=== PATIENT | male | born 1950 ===

== ENCOUNTER → 2020-11-07 08:00 | Outpatient (ROUT) | payer MEDICARE, MEDICAID, SELFPAY ==
[2020-11-07 08:30] LABS: Add Manual Diff / Slide Review NO; Basophils Absolute Auto 0 /uL (0-100); Basophils Percent Auto 0.5 % (0-2); Eosinophils Absolute Auto 200 /uL (0-450); Eosinophils Percent Auto 4.6 % (2-4); Hematocrit 42.9 % (41-53); Hemoglobin 14.4 g/dL (13.5-17.5); Lymphocytes Absolute Auto 1400 /uL (1100-4500); Lymphocytes Percent Auto 31.2 % (25-40); Mean Corpuscular HGB Conc 33.7 % (30-36); Monocytes Absolute Auto 500 /uL (0-900); Monocytes Percent Auto 10.8 % (3-14); Neutrophils Absolute Auto 2400 /uL (1500-7000); Neutrophils Percent Auto 52.9 % (50-75); Platelet Count 169 X10^3/uL (150-400); Red Blood Cell Count 4.52 X10^6/uL (4.5-5.9); Red Cell Distribution Width 13.5 % (11.6-14.8); White Blood Cell Count 4.5 X10^3/uL (4.5-11.0)
[2020-11-07 08:59] LABS: Alanine Aminotransferase 28 IU/L (<50); Albumin 4.4 g/dL (3.5-5.0); Albumin Globulin Ratio 1.3 (1.0-2.8); Alkaline Phosphatase 30 U/L (38-126); Aspartate Aminotransferase 40 IU/L (17-59); BUN Creatinine Ratio 17.6 (6-22); Bilirubin Total 0.9 mg/dL (0.2-1.3); Blood Urea Nitrogen 16 mg/dL (9-20); Calcium 9.4 mg/dL (8.4-10.2); Carbon Dioxide 27 mmol/L (22-32); Chloride 103 mmol/L (98-107); Estimated Glomerular Filt Rate > 60.0 mL/min (>60); Globulin 3.3 g/dL (1.7-4.1); Glucose 73 mg/dL (80-110); HEMOLYSIS 37 (0-50); Potassium 4.2 mmol/L (3.4-5.1); Sodium 140 mmol/L (137-145); Total Protein 7.7 g/dL (6.3-8.2)
[2020-11-07 09:29] LABS: Thyroid Stimulating Hormone 3.79 uIU/mL (0.47-4.68)
[2020-11-07 09:48] LABS: Vitamin B12 446 pg/mL (239-931)
== END ==
PROVIDERS: Visit Provider Nurse Practitioner Family
DX: R41.0 Disorientation, unspecified (principal); R53.83 Other fatigue
CPT/HCPCS: 36415; 80053; 82607; 84443; 85025

== ENCOUNTER → 2021-06-27 17:10 | Outpatient (ROUT) | payer MEDICARE, MEDICAID, SELFPAY ==
[2021-06-30 09:22] LABS: COVID19 Sendout Not Detected (Not Detect)
== END ==
PROVIDERS: Visit Provider Internal Medicine
DX: Z20.822 Contact with and (suspected) exposure to COVID-19 (principal)
CPT/HCPCS: 87635

== ENCOUNTER 2021-07-07 09:11 | Emergency (ER) | payer MEDICARE, MEDICAID, SELFPAY ==
[2021-07-07] VITALS (7 sets, daily range): BP systolic 113–131; BP diastolic 67–88; PULSE 76–80; RESP 14; TEMP 36.4; O2SAT 94–98
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
--- NOTE | 2021-07-07 09:30 | DI.RAD.S_ITS ---
PROCEDURE: XR CHEST 1V INDICATIONS: +covid at outside facility. lethargic at facility. TECHNIQUE: One view of the chest was acquired. COMPARISON: [facility], CR, XR CHEST 1 VIEW, 06/25/2018, 16:02. FINDINGS: Surgical changes and devices: None. Lungs and pleura: Reduced lung volumes with prominence of the bronchovascular markings. Bibasilar streaky densities. No consolidation, pleural effusions or pneumothorax. Mediastinum: Mediastinal contours appear normal. Heart size is normal. Bones and chest wall: Multifocal degenerative change of the osseous structures. Overlying soft tissues appear unremarkable. IMPRESSION: Bibasilar atelectasis, superimposed infectious process cannot be excluded. Dictated by: Brian Dinh M.D. on 07/07/2021 at 9:58 Approved by: Brian Dinh M.D. on 07/07/2021 at 9:59
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
--- NOTE | 2021-07-07 10:09 | PC.NURSE ---
no symptoms reported by way of license inspector
--- NOTE | 2021-07-07 10:15 | PC.NURSE ---
patient speaks Mandarin
--- NOTE | 2021-07-07 10:52 | PC.NURSE ---
family friend in room: suzan parham
[2021-07-07 11:27] LABS: Add Manual Diff / Slide Review NO; Basophils Absolute Auto 0 /uL (0-100); Basophils Percent Auto 0.3 % (0-2); Eosinophils Absolute Auto 100 /uL (0-450); Eosinophils Percent Auto 1.3 % (2-4); Hematocrit 39.8 % (41-53); Hemoglobin 13.4 g/dL (13.5-17.5); Lymphocytes Absolute Auto 700 /uL (1100-4500); Lymphocytes Percent Auto 14.2 % (25-40); Mean Corpuscular HGB Conc 33.7 % (30-36); Mean Corpuscular Hemoglobin 31.1 PG (26-34); Mean Corpuscular Volume 92.2 fL (80-100); Monocytes Absolute Auto 400 /uL (0-900); Monocytes Percent Auto 8.6 % (3-14); Neutrophils Absolute Auto 3600 /uL (1500-7000); Neutrophils Percent Auto 75.6 % (50-75); Platelet Count 154 X10^3/uL (150-400); Red Blood Cell Count 4.32 X10^6/uL (4.5-5.9); Red Cell Distribution Width 13.9 % (11.6-14.8); White Blood Cell Count 4.8 X10^3/uL (4.5-11.0)
[2021-07-07 11:44] LABS: Alanine Aminotransferase 20 IU/L (<50); Albumin 4.1 g/dL (3.5-5.0); Albumin Globulin Ratio 1.3 (1.0-2.8); Alkaline Phosphatase 36 U/L (38-126); Aspartate Aminotransferase 30 IU/L (17-59); Bilirubin Total 1.3 mg/dL (0.2-1.3); Blood Urea Nitrogen 18 mg/dL (9-20); Calcium 8.8 mg/dL (8.4-10.2); Carbon Dioxide 31 mmol/L (22-32); Chloride 105 mmol/L (98-107); Creatine Kinase 169 U/L (55-170); Estimated Glomerular Filt Rate > 60.0 mL/min (>60); Globulin 3.2 g/dL (1.7-4.1); Glucose 84 mg/dL (80-110); HEMOLYSIS < 15 (0-50); Potassium 4.1 mmol/L (3.4-5.1); Sodium 140 mmol/L (137-145); Total Protein 7.3 g/dL (6.3-8.2)
[2021-07-07 11:56] LABS: NT-proBNP (BNP-Adult 18+) 89 pg/mL (<125); Troponin I < 0.012 ng/mL (0.01-0.034)
[2021-07-07 11:59] LABS: CKMB % Relative Index 1.3 % (1.5-5.0); Creatine Kinase MB 2.12 ng/mL (<2.37)
--- NOTE | 2021-07-07 12:56 | PC.NURSE ---
patient denies discomfort
== END 2021-07-07 13:00 | disposition home or self-care (01) ==
PROVIDERS: Emergency Provider Emergency Medicine
DX: U07.1 COVID-19 (principal)
CPT/HCPCS: 36415; 71045; 80053; 82550; 82553; 83880; 84484; 85025; 99284